=== PATIENT | male | born 1970 | race African-American/Black ===

== ENCOUNTER 2023-07-24 07:57 | Day surgery (SDC) | payer OTHER ==
[2023-07-24] VITALS (11 sets, daily range): BP systolic 117–142; BP diastolic 69–98; PULSE 62–72; TEMP 98.3
[~2023-07-24] VITALS: Ht 182.9 cm; Wt 120.6 kg
[2023-07-24 08:35] LABS: HEMATOCRIT 46.4 % (42.0-52.0); HEMOGLOBIN 15.1 g/dl (13.5-18.0); MEAN CELL VOLUME 86 fl (80.0-100.0); MEAN CORPUSCULAR HEMOGLOBIN 28 pg (27-31); MEAN CORPUSCULAR HGB CONC 33 g/dl (33.0-37.0); MEAN PLATELET VOLUME 10.3 fl (7.4-10.4); PLATELET COUNT 298 K/mm3 (130-400); RED BLOOD COUNT 5.43 M/mm3 (4.20-5.60); REDCELL DISTRIBUTION WIDTH-CV 14.7 % (11.5-14.5)
[2023-07-24] MEDS ORDERED: COMPLETE MULTI1 TAB PO (08:41)
[2023-07-24] MEDS ORDERED: MOBIC15 MG PO (08:41)
[2023-07-24] MEDS ORDERED: TOPROL XL 25MG25 MG PO (08:42)
[2023-07-24] MEDS ORDERED: COZAAR 25MG25 MG/TAB PO (08:42)
[2023-07-24] MEDS ORDERED: PLAVIX 75MG TAB75 MG PO (08:42)
[2023-07-24] MEDS ORDERED: ASPIRIN E.C. 8181 MG PO (08:42)
[2023-07-24] MEDS ORDERED: CRESTOR20 MG PO (08:43)
[2023-07-24 08:48] LABS: CALCIUM 9.5 mg/dL (8.4-10.2); CREATININE, serum 1.02 mg/dL (0.72-1.25); POTASSIUM 4.1 mmol/L (3.5-4.5)
--- NOTE | 2023-07-24 09:19 | NUR ---
SEE MERGE FOR ALL INTERVENTIONS, VITAL SIGNS AND MEDICATIONS.
[2023-07-24 09:22] LABS: PROTHROMBIN TIME 11.3 SECONDS (9.7-12.8)
[2023-07-24 09:23] LABS: PARTIAL THROMBOPLASTIN TIME 38.4 SECONDS (26.0-37.0)
--- NOTE | 2023-07-24 12:55 | NUR ---
Air was released from TR band in 2 ml increments with no bleeding or complication. Rt radial puncture site dressed with folded 2x2 and bandaid. Pt is steady on feet in room. He's tolerated PO fluids and food with no c/o nausea. IV Dc'd, site wrapped with coban. DC instructions reviewd with pt and . Both express understanding. Pt assisted out to 's car by wheelchair with belongings.
== END 2023-07-24 12:55 | disposition home or self-care (01) ==
LOC: COL.CAR 07:57
PROVIDERS: Internal Medicine Interventional Cardiology
DX: I20.9 Angina pectoris, unspecified (principal); I10 Essential (primary) hypertension; R07.9 Chest pain, unspecified; R94.39 Abnormal result of other cardiovascular function study; R00.2 Palpitations
CPT/HCPCS: C1769; J1644; J2250; J3010; Q9967